=== PATIENT | female | born 1940 | race Caucasian/White ===

== ENCOUNTER 2017-08-15 08:09 | Observation (INO) | payer MEDICARE, BC ==
[~2017-08-15] VITALS: Ht 165.1 cm; Wt 54.0 kg
[2017-08-15 08:44] VITALS: BP 148/66
[2017-08-15] MEDS ORDERED: Calcium PO (08:54)
[2017-08-15] MEDS ORDERED: Magnesium PO (08:54)
[2017-08-15] MEDS ORDERED: Fish Oil PO (08:54)
[2017-08-15] MEDS ORDERED: Vitamin D PO (08:54)
[2017-08-15] MEDS ORDERED: Selenium PO (08:54)
[2017-08-15] MEDS ORDERED: CEFAZOLIN PMX 1GM/50ML 50 ML IVPB ONE (09:00)
[2017-08-15] MEDS ORDERED: SODIUM CHLORIDE 0.9% 1,000 ML IV SCH (09:00)
[2017-08-15] MEDS ORDERED: FENTANYL PF 100 MCG/2ML ONE (09:23)
[2017-08-15] MEDS ORDERED: LIDOCAINE/PF 1%, 30ML ONE (09:23)
[2017-08-15] MEDS ORDERED: MIDAZOLAM 1 MG/ML, 2ML ONE (09:23)
[2017-08-15] MEDS ORDERED: CEFAZOLIN PMX 1GM/50ML 50 ML ONE (09:23)
[2017-08-15] MEDS ORDERED: CEFAZOLIN 1,000 MG ONE (09:23)
[2017-08-15] MEDS ORDERED: ACETAMINOPHEN 325 MG TABLET PO PRN (10:30)
[2017-08-15 12:49] VITALS: BP 161/77
[2017-08-15] MEDS: CEFAZOLIN PMX 1GM/50ML 50 ML IVPB SCH (18:06)
[2017-08-15 19:10] VITALS: BP 153/79
[2017-08-15] MEDS: SODIUM CHLORIDE FLUSH 10ML SYR IVF SCH (19:43)
[2017-08-16 00:07] VITALS: BP 166/87
[2017-08-16] MEDS: CEFAZOLIN PMX 1GM/50ML 50 ML IVPB SCH (01:30)
[2017-08-16 07:51] VITALS: BP 149/87
[2017-08-16] MEDS ORDERED: ACET325T14 PO (08:37)
[2017-08-16] MEDS: SODIUM CHLORIDE FLUSH 10ML SYR IVF SCH (09:00)
== END 2017-08-16 10:20 | disposition home or self-care (01) ==
LOC: CACL 08:09 → ORIP 10:26 → 5SO 11:01 → DCLOUNGE 08-16 10:06
PROVIDERS: ADMIT Internal Medicine Cardiovascular Disease; ATTEND Internal Medicine Cardiovascular Disease
DX: I44.1 Atrioventricular block, second degree (principal); R00.1 Bradycardia, unspecified
CPT/HCPCS: 33208; 71045; 96365; 96375; 99156; C1779; C1785; C1892; G0378; J0690; J2250; J3010; J3490